=== PATIENT | male | born 1970 | race Two or more races ===

== ENCOUNTER 2019-08-02 02:35 | Emergency (ER) | payer MEDICARE, OTHER, MEDICAID ==
[~2019-08-02] VITALS: Ht 175.3 cm; Wt 95.7 kg
[2019-08-02] MEDS ORDERED: TDAP [DIPH/PERTUSSIS/TET] 0.5 ML VIAL IM ONE ×2 (02:38→03:00)
--- NOTE | 2019-08-02 02:50 | NUR ---
PT [id number]. FOUND ON OUTSIDE A BAR. REPORTED TRIP AND FALL. NOTED ABRASION . R CHEEK. INTOXIXATED, PT STATED "WOOF WOOF". PT LETHARGIC, RESPONSIVE TO MECHANICAL STIMULI. PT CONNECTED TO THE CABLE INSTALLATION MANAGER AND POX.
--- NOTE | 2019-08-02 02:56 | NUR ---
PT BROUGHT BY RADIOLOGY TO CT
--- NOTE | 2019-08-02 03:10 | NUR ---
BROUGHT BACK FROM CT
--- NOTE | 2019-08-02 03:11 | NUR ---
PT RETURNED FROM CT
--- NOTE | 2019-08-02 05:00 | NUR ---
PT CONSTANTLY ATTEMPTING TO GET OUT OF BED. PT SPEAKING IN INCOHERENT SENTENCES. PT REMAINS AGGITATED, THREATENING TO LEAVE HOSPITAL. AT BEDSIDE
[2019-08-02] MEDS ORDERED: diphenhydrAMINE HCL 50 MG/ML VIAL ONE (05:02)
[2019-08-02] MEDS ORDERED: HALOPERIDOL LACTATE INJ 5 MG/ML VIAL ONE (05:02)
[2019-08-02] MEDS ORDERED: LORAZEPAM INJ 2 MG/ML VIAL ONE (05:02)
[2019-08-02] MEDS ORDERED: diphenhydrAMINE HCL 50 MG/ML VIAL IM ONE (05:30)
[2019-08-02] MEDS ORDERED: HALOPERIDOL LACTATE INJ 5 MG/ML VIAL IM ONE (05:30)
[2019-08-02] MEDS ORDERED: LORAZEPAM INJ 2 MG/ML VIAL IV ONE (05:30)
--- NOTE | 2019-08-02 07:27 | NUR ---
PT IS SLEEPING COMFORTABLY IN BED 6. EASILY AROUSED THROUGH TACTILE AND VERBAL STIMULI. NO SOB. BREATHING EVENLY AND UNLABORED. CALL LIGHT WITHIN REACH. CONNECTED TO SYSTEMS CONSULTANT.
[2019-08-02 15:24] VITALS: BP 112/76
--- NOTE | 2019-08-02 15:24 | NUR ---
Patient discharged to home in stable condition. Written and verbal after care instructions given. Patient verbalizes understanding of instruction. PT ambulatory with a steady gait. vss.
== END 2019-08-02 15:27 | disposition home or self-care (01) ==
LOC: ER 02:35
DX: S00.81XA Abrasion of other part of head, initial encounter (principal); F10.129 Alcohol abuse with intoxication, unspecified; Y90.9 Presence of alcohol in blood, level not specified; W01.0XXA Fall on same level from slipping, tripping and stumbling without subsequent striking against object, initial encounter; Y93.89 Activity, other specified; Y92.89 Other specified places as the place of occurrence of the external cause; Y99.8 Other external cause status
CPT/HCPCS: 70450; 90471; 90715; 96372 ×3; 99284; J1200; J1630; J2060